=== PATIENT | female | born 1970 | race Caucasian/White ===

== ENCOUNTER 2019-02-09 12:52 | Emergency (ER) | payer SELFPAY ==
[~2019-02-09] VITALS: Ht 152.4 cm; Wt 70.9 kg
[~2019-02-09 12:52] MED LIST: INSU100I9 SQ-INSULIN
[2019-02-09] MEDS ORDERED: SODIUM CHLORIDE FLUSH 10ML SYR IVF ONE (13:30)
[2019-02-09 13:44] LABS: BASOPHILS # (AUTO) 0.03 x10^3/uL (0-0.1); BASOPHILS % (AUTO) 0 % (0-1); EOSINOPHILS # (AUTO) 0.09 x10^3/uL (0-0.4); EOSINOPHILS % (AUTO) 1 % (1-7); LYMPHOCYTES # (AUTO) 2.24 x10^3/uL (1-3.4); LYMPHOCYTES % (AUTO) 26 % (22-44); MD NO; MEAN CORPUSCULAR HEMOGLOBIN 31.1 pg (27.0-34.8); MEAN CORPUSCULAR HGB CONC 33.8 g/dL (32.4-35.8); MEAN CORPUSCULAR VOLUME 92.2 fL (80-100); MEAN PLATELET VOLUME 8.3 fL (7.4-10.4); MONOCYTES # (AUTO) 0.45 x10^3/uL (0.2-0.8); MONOCYTES % (AUTO) 5 % (2-9); NEUTROPHILS # (AUTO) 5.96 x10^3/uL (1.8-6.8); NEUTROPHILS % (AUTO) 68 % (42-75); PLATELET COUNT 362 x10^3/uL (130-400); RED BLOOD COUNT 4.63 x10^6/uL (3.82-5.3)
[2019-02-09 13:46] LABS: ALANINE AMINOTRANSFERASE 29 U/L (12-78); ALBUMIN 3.4 g/dL (3.4-5.0); ANION GAP 7 mmol/L (5-15); CALCIUM 9.3 mg/dL (8.5-10.1); CHLORIDE 102 mmol/L (98-107); CREATININE 0.88 mg/dL (0.55-1.02)
[2019-02-09 13:49] LABS: ALKALINE PHOSPHATASE 164 U/L (45-117); BILIRUBIN,TOTAL 0.1 mg/dL (0.2-1.0); TOTAL PROTEIN 7.6 g/dL (6.4-8.2)
--- NOTE | 2019-02-09 14:25 | NUR ---
PT AMBULATORY TO ROOM FROM LOBBY. NAD.
--- NOTE | 2019-02-09 14:25 | NUR ---
[employer]: PT TO ROOM FROM LOBBY
--- NOTE | 2019-02-09 14:35 | NUR ---
UA SENT TO LAB. PT RESTING IN POSITION OF COMFORT IN [facility]. MD AT BEDSIDE. PT DENIES NEEDS. CALL LIGHT W/IN REACH, PT INSTRUCTED ON USE, VERBALIZED UNDERSTANDING. FALL PRECAUTIONS IN PLACE.
[2019-02-09 14:42] LABS: MICROSCOPIC NOT IND
[2019-02-09 14:49] LABS: CULTURE INDICATED? NO
[2019-02-09] MEDS ORDERED: MECLIZINE CHEWABLE 25 MG TAB PO ONE (15:00)
[2019-02-09] MEDS ORDERED: MORPHINE SULFATE 4 MG/ML, 1ML ONE ×2 (15:00→16:41)
[2019-02-09] MEDS ORDERED: MECLIZINE CHEWABLE 25 MG TAB ONE (15:00)
[2019-02-09] MEDS: MORPHINE SULFATE 4 MG/ML, 1ML IVPush PRN ×2 (15:03→16:50)
--- NOTE | 2019-02-09 15:15 | NUR ---
PT MEDICATED ORDERED ON DEC FOR PAIN, 05/26. DISCUSSED PT'S BG Jean CHADWICK, AWAITING FURTHER ORDERS. CONTINUOUS SPO2 MONITORING IN PLACE.
--- NOTE | 2019-02-09 15:16 | NUR ---
BEDSIDE REPORT TO RODRIGO POSADAS
[2019-02-09 19:09] VITALS: BP 144/79
== END 2019-02-09 19:12 | disposition home or self-care (01) ==
LOC: ED 15:17
DX: R10.11 Right upper quadrant pain (principal); H81.399 Other peripheral vertigo, unspecified ear; E11.9 Type 2 diabetes mellitus without complications
CPT/HCPCS: 36415; 76700; 80053; 81003; 83690; 85025; 93005; 96374; 96376